=== PATIENT | male | born 1990 | race Caucasian/White ===

== ENCOUNTER 2018-05-26 20:25 | Emergency (ER) | payer MEDICARE, MEDICAID ==
[~2018-05-26] VITALS: Ht 170.2 cm; Wt 80.3 kg
[2018-05-26] MEDS ORDERED: PHENYTOIN (20:48)
[2018-05-26] MEDS ORDERED: FLUTICASONE 50 MCG (20:48)
[2018-05-26] MEDS ORDERED: METRONIDAZOLE 0.75% (20:48)
--- NOTE | 2018-05-26 21:44 | Diagnostic Imaging Report ---
INDICATION: Foreign body ingestion. Hoarse voice and drooling. FINDINGS: There is no evidence of a foreign body. The lungs demonstrate no focal infiltrate or consolidation. There is no effusion. There is no pneumothorax. Heart size and mediastinal contours appear appropriate. There is a thoracic scoliosis. IMPRESSION: 1. No evidence of a radiodense foreign body. 2. No acute cardiopulmonary process. Dictated by: Dictated on workstation # [id number]
--- NOTE | 2018-05-26 21:46 | Diagnostic Imaging Report ---
EXAMINATION: Soft tissue neck. INDICATION: Evaluate for foreign body. FINDINGS: These two views of the soft tissues of the neck demonstrate no evidence of a retained radiodense foreign body. There is no abnormal prevertebral soft tissue thickening or thickening of the epiglottis. The visualized portion of the lungs appear clear. IMPRESSION: No evidence of radiodense foreign body. Dictated by: Dictated on workstation # [id number]
--- NOTE | 2018-05-26 21:48 | ED GI ---
General Chief Complaint: Foreign Body Stated Complaint: PT POSSIBLY SWALLOWED FOREIGN OBJECT Nursing Triage Note: question if patient swallowed a toy or some object, no signs or symptoms assessed by this RN. Source of Information: Patient, Caregiver, Family Exam Limitations: Physical Impairments (patient has medication deficits), Other History of Present Illness Date Seen by Provider: May 26, 2018 Time Seen by Provider: 21:00 Initial Comments Patient is a 27-year-old alf patient with history of cognitive impairment , and PICA with concern for possible foreign body ingestion. Patient was last seen in his bedroom playing with a car when staff member returned from using the bathroom where this patient coughing up large quantity of mucus. Then patient appeared to have some difficulty swallowing but was never in distress. Patient has not had coughing, choking, vomiting, complains of shortness of breath or abdominal pain. There is not a witnessed foreign body ingestion or knowledge of missing items in the room. No other acute symptoms or complaints. Additional history obtained from care worker, mother and brother. Timing/Duration: 1-3 Hours Severity/Quality: Other (resolved) Allergies and Home Medications Allergies Coded Allergies: amoxicillin (Verified Allergy, Unknown, 05/26/18) clavulanic acid (Verified Allergy, Unknown, 05/26/18) Patient Home Medication List Home Medication List Reviewed: Yes Review of Systems Review of Systems Constitutional: see HPI EENTM: See HPI Respiratory: See HPI Cardiovascular: See HPI Gastrointestinal: See HPI Genitourinary: See HPI Musculoskeletal: see HPI Skin: see HPI Past Zvnehaa-Kedboq-Gnvygf Hx Past Med/Social Hx: Reviewed Nursing Past Med/Soc Hx Patient Social History Recent Foreign Travel: No Contact w/Someone Who Travel: No Physical Exam Vital Signs Capillary Refill : Height/Weight/BMI Height: '" Weight: lbs. oz. kg; BMI Method: General Appearance: WD/WN, no apparent distress HEENT: PERRL/EOMI, normal ENT inspection, pharynx normal, other (no pharyngeal abrasions, Viable foreign bodies) Neck: supple, normal inspection Respiratory: chest non-tender, lungs clear, normal breath sounds, no respiratory distress, no accessory muscle use Cardiovascular: normal peripheral pulses, regular rate, rhythm Gastrointestinal: soft; No abnormal bowel sounds, No distended, No guarding, No rebound, No tenderness, No mass Extremities: normal range of motion Skin: normal color Progress/Results/Core Measures Results/Orders My Orders Orders - JACLYN ALVARENGA DO Soft Tissue Neck (05/26/18 20:50) Chest 1 View Ap/Pa Only (05/26/18 20:50) Abdomen (Kub) 1 View (05/26/18 20:50) Departure Communication (Admissions) Concern for possible gagging, choking episode with possible foreign body ingestion-unwitnessed. Patient with normal physical exam and unremarkable x- rays of neck, chest and abdomen. Recommend close watchful waiting, return ED evaluation if new symptoms develop this potential aspirated worse all foreign body has not been eliminated as the diagnosis. Impression Primary Impression: Choking episode Disposition: HOME, SELF-CARE Condition: Stable Departure-Patient Inst. Decision time for Depature: 21:48 Referrals: NO,LOCAL PHYSICIAN (PCP) Primary Care Physician Patient Instructions: Foreign Body, Swallowed, Adult (DC) Add. Discharge Instructions: Rigoberto was evaluated in the emergency department for choking episode with possible foreign body ingestion or aspiration. There are no foreign bodies identified on imaging films of neck, chest and abdomen. Please watch told him closely over the next 12-24 hours for increased cough, shortness of breath, fever, abdominal pain, vomiting or other concerning symptoms. Return to the ED immediately if he symptoms develop. All discharge instructions reviewed with patient and/or family. Voiced understanding. JACLYN ALVARENGA DO May 26, 2018 21:48
--- NOTE | 2018-05-26 21:48 | Diagnostic Imaging Report ---
INDICATION: Evaluate for ingested foreign body. FINDINGS: The bowel gas pattern appears nonobstructed. There is moderate stool within the colon. There is no radiodense foreign body evident. There are no unexpected abdominal calcifications. There is no suspicious osseous abnormality. Note is made of spinal scoliosis. IMPRESSION: 1. No evidence of retained radiodense foreign body 2. Moderate stool within the colon. There is significant stool at the level of the rectum suggesting constipation. There are no findings to suggest bowel obstruction. Dictated by: Dictated on workstation # [id number]
[2018-05-26 21:55] VITALS: BP 105/72
== END 2018-05-26 21:55 | disposition home or self-care (01) ==
LOC: ER FS 20:28
DX: R09.89 Other specified symptoms and signs involving the circulatory and respiratory systems (principal); G31.84 Mild cognitive impairment of uncertain or unknown etiology; Z88.0 Allergy status to penicillin; Z88.8 Allergy status to other drugs, medicaments and biological substances
CPT/HCPCS: 70360; 71045; 74018

== ENCOUNTER 2018-07-06 20:29 | Emergency (ER) | payer MEDICARE, MEDICAID ==
[~2018-07-06] VITALS: Ht 172.7 cm; Wt 68.0 kg
[~2018-07-06 20:29] MED LIST: FLUTICASONE 50 MCG; METRONIDAZOLE 0.75%; PHENYTOIN
--- OUTSIDE RECORDS SUMMARY | 2018-07-06 20:33 | XMS REPORT | Continuity of Care Document ---
Author Organization Unknown Address Unknown Allergies Active Description Code Type Severity Reaction Onset Reported/Identified Relationship to Patient Clinical Status Yes amoxicillin [id number] Drug Allergy Unknown N/A 05/26/2018 Yes clavulanic acid [id number] Drug Allergy Unknown N/A 05/26/2018 Medications There is no data. Problems Date Dx Coded Attending Type Code Diagnosis Diagnosed By 05/26/2018 JACLYN ALVARENGA DO, Ot G31.84 MILD COGNITIVE IMPAIRMENT, SO STATED 05/26/2018 JACLYN ALVARENGA DO Ot R09.89 OTH SYMPTOMS AND SIGNS INVOLVING THE CIR 05/26/2018 JACLYN ALVARENGA DO Ot Z88.0 ALLERGY STATUS TO PENICILLIN 05/26/2018 JACLYN ALVARENGA DO, Ot Z88.8 ALLERGY STATUS TO OTH DRUG/MEDS/BIOL SUB 05/30/2018 JACLYN ALVARENGA DO, Ot G31.84 MILD COGNITIVE IMPAIRMENT, SO STATED 05/30/2018 JACLYN ALVARENGA DO Ot R09.89 OTH SYMPTOMS AND SIGNS INVOLVING THE CIR 05/30/2018 JACLYN ALVARENGA DO Ot Z88.0 ALLERGY STATUS TO PENICILLIN 05/30/2018 JACLYN ALVARENGA DO, Ot Z88.8 ALLERGY STATUS TO OTH DRUG/MEDS/BIOL SUB Procedures There is no data. Results There is no data. Encounters ACCT No. Visit Date/Time Discharge Status Pt. Type Provider Facility Loc./Unit Complaint [id number] 05/26/2018 20:28:00 05/26/2018 21:55:00 DIS Emergency JACLYN ALVARENGA DO Via [facility] ER FS PT POSSIBLY SWALLOWED FOREIGN OBJECT
--- NOTE | 2018-07-06 21:26 | ED General ---
General Chief Complaint: Foreign Body Stated Complaint: SWALLOWED FOREIGN OBJECT Source of Information: Patient, Caregiver History of Present Illness Date Seen by Provider: July 06, 2018 Time Seen by Provider: 21:26 Initial Comments 27-year-old male that presents from [facility]. He had ingested part of that window blind. He has a history of pica and eating things inappropriately. He has not had any difficulty with his breathing. He has no abdominal pain or complaints. The caregivers were able to see him doing this and remove what they felt was a majority of the piece of plastic/vinyl window blind from his mouth. Staff had wanted him checked out so he was brought by caregiver to the ED Allergies and Home Medications Allergies Coded Allergies: amoxicillin (Verified Allergy, Unknown, 05/26/18) clavulanic acid (Verified Allergy, Unknown, 05/26/18) Patient Home Medication List Home Medication List Reviewed: Yes Review of Systems Review of Systems Constitutional: no symptoms reported EENTM: no symptoms reported Respiratory: no symptoms reported Cardiovascular: no symptoms reported Gastrointestinal: no symptoms reported Genitourinary: no symptoms reported Musculoskeletal: no symptoms reported Skin: no symptoms reported Past Mpbqwnc-Yakyze-Jkkwfa Hx Past Med/Social Hx: Reviewed Nursing Past Med/Soc Hx Patient Social History 2nd Hand Smoke Exposure: No Recent Foreign Travel: No Contact w/Someone Who Travel: No Recent Hopitalizations: No Seasonal Allergies Seasonal Allergies: No Past Medical History Respiratory: No Neurological: Yes ("global delays") Developmental Disorder, Seizure Disorder Genitourinary: No Gastrointestinal: Yes ("Pica") Endocrine: No HEENT: No Cancer: No Psychosocial: No Integumentary: No Physical Exam Vital Signs Vital Signs - First Documented 07/06/18 07/06/18 21:09 22:16 Temp 97.0 Pulse 60 Resp 18 B/P (MAP) 107/87 (94) Pulse Ox 97 O2 Delivery Room Air Capillary Refill : Height, Weight, BMI Height: 5'7.00" Weight: 177lbs. oz. 80.942692ne; BMI Method:Actual General Appearance: No Apparent Distress, WD/WN HEENT: Normal ENT Inspection, Pharynx Normal Neck: Full Range of Motion, Normal Inspection, Non Tender, Supple Respiratory: Chest Non Tender, Lungs Clear, Normal Breath Sounds, No Accessory Muscle Use, No Respiratory Distress Cardiovascular: Regular Rate, Rhythm, Normal Peripheral Pulses Gastrointestinal: Normal Bowel Sounds, No Pulsatile Mass, Non Tender, Soft Neurologic/Psychiatric: Alert Skin: Normal Color, Warm/Dry Progress/Results/Core Measures Suspected Sepsis SIRS Temperature: Pulse: Respiratory Rate: Blood Pressure / Mean: Results/Orders My Orders Orders - REGGIE LEOS MD Acute Abd Series (07/06/18 21:35) Vital Signs/I&O 07/06/18 07/06/18 21:09 22:16 Temp 97.0 96.8 Pulse 60 60 Resp 18 16 B/P (MAP) 107/87 (94) 121/52 (75) Pulse Ox 97 O2 Delivery Room Air Capillary Refill : Progress Note #1: Progress Note check acute abdomen series to ensure nothing is showing up in his lungs or abdomen beyond the vinyl pieces that will likely blend into the soft tissues on the film. Progress Note #2: Progress Note Nothing acute shows up on his acute abdomen series. Patient continues to swallow and breathe fine without any difficulty. Will treat symptomatically. Counseled on follow-up and return precautions Diagnostic Imaging Diagonstic Imaging: Xray Plain Films/CT/US/NM/MRI: abdomen Comments On my review of the acute abdomen series the patient he has no acute obvious foreign body, no infiltrate, no signs of obstruction in his airways. He has normal gas pattern as well. He has no evidence of perforation or free air Departure Impression Primary Impression: Ingestion of foreign body Qualified Codes: T18.9XXA - Foreign body of alimentary tract, part unspecified, initial encounter Disposition: 01 HOME, SELF-CARE Condition: Stable Departure-Patient Inst. Decision time for Depature: 22:08 Referrals: NO,LOCAL PHYSICIAN (PCP) Primary Care Physician Patient Instructions: Foreign Body, Swallowed, Adult (DC) Add. Discharge Instructions: check with clinic for continued problems/symptoms. Try to keep him from eating or ingesting objects All discharge instructions reviewed with patient and/or family. Voiced understanding. REGGIE LEOS MD July 06, 2018 21:26
[2018-07-06 22:16] VITALS: BP 121/52
--- NOTE | 2018-07-07 07:23 | Diagnostic Imaging Report ---
INDICATION: History of ingested foreign body. Abdominal series performed with frontal chest radiograph in supine and upright abdominal film. FINDINGS: Heart and mediastinal silhouette are normal in appearance. The lungs appear clear. There is no pneumothorax or pleural fluid. There is no free intraperitoneal air. Abdominal bowel gas pattern appears unremarkable. There is no radiopaque foreign body visualized over the abdomen. There is prominent stool throughout the colon. IMPRESSION: No sign of free air or bowel obstruction. Prominent stool in the colon. No radiopaque foreign body visualized. No acute process in the chest. Dictated by: Dictated on workstation # [id number]
== END 2018-07-06 22:22 | disposition home or self-care (01) ==
LOC: EDUNIT# 20:29 → ER FS 20:30
DX: T18.9XXA Foreign body of alimentary tract, part unspecified, initial encounter (principal); G40.909 Epilepsy, unspecified, not intractable, without status epilepticus; F88 Other disorders of psychological development; Z88.8 Allergy status to other drugs, medicaments and biological substances; Z88.1 Allergy status to other antibiotic agents
CPT/HCPCS: 74022

== ENCOUNTER → 2021-04-24 | Outpatient (CLI) | payer MEDICARE, MEDICAID ==
--- NOTE | 2021-04-24 16:56 | Diagnostic Imaging Report ---
EXAMINATION: Right hand radiograph. EXAM DATE: 04/24/2021. COMPARISON: None available. HISTORY: Right hand pain. TECHNIQUE: 3 views of the right hand. FINDINGS: There is no acute fracture, dislocation or destructive osseous process. The joint spaces are normal. The soft tissues are normal. IMPRESSION: No acute osseous abnormality of the right hand. Dictated by: Dictated on workstation # [id number]
== END ==
LOC: RAD FS 15:30
PROVIDERS: ATTEND Nurse Practitioner Family
DX: M79.641 Pain in right hand (principal)
CPT/HCPCS: 73130